=== PATIENT | male | born 1995 | race Caucasian/White ===

== ENCOUNTER 2022-08-05 06:51 | Emergency (ER) | payer SELFPAY ==
[2022-08-05 07:20] LABS: Bilirubin Small (Negative); Blood, Urine Negative (Negative); Clarity Clear (Clear); Glucose, Urine (Dipstick) Negative (Negative); Ketone, Urine 80 mg/dL (Negative); Leukocyte Negative (Negative); Nitrite Negative (Negative); Protein, Urine (Dipstick) 100 mg/dL (Neg-Trace); Urobilinogen 0.2 mg/dL (Less than 2)
[2022-08-05 07:27] LABS: Specific Gravity, Urine 1.032 (1.002-1.036)
[2022-08-05 07:29] LABS: Bacteria/HPF Rare-Few HPF (None Seen); Mucous/LPF 2+ LPF (<2+); RBC/HPF None Seen HPF (0-3); Squamous Epithelial 0-3 HPF (0-3); WBC/HPF None Seen HPF (0-3)
[2022-08-05 07:30] LABS: ALT (SGPT) 18 U/L (8-55); AST (SGOT) 14 U/L (5-34); Albumin 4.8 g/dL (3.5-5.0); Alkaline Phosphatase 80 U/L (40-110); Anion Gap 24 mmol/L (10-20); BUN (Urea Nitrogen) 15 mg/dL (8.9-20.6); Bilirubin, Total 0.6 mg/dL (0.2-1.2); Calc. Creatinine Clearance 0 mL/min (70-130); Calcium 10.1 mg/dL (7.8-10.44); Carbon Dioxide 14 mmol/L (22-29); Chloride 109 mmol/L (98-107); Estimated GFR 100; Glucose 120 mg/dL (70-105); Lipase 14 U/L (8-78); Magnesium 1.7 mg/dL (1.6-2.6); Potassium 3.4 mmol/L (3.5-5.1); Protein, Total 7.8 g/dL (6.0-8.3); Sodium 144 mmol/L (136-145)
[2022-08-05] MEDS ORDERED: Sodium Chloride 0.9% 1,000 ML ONE (07:30)
[2022-08-05 07:31] LABS: Amphetamine Not Detected (NotDetected); Barbiturates Screen Not Detected (NotDetected); Benzodiazepine Screen Detected (NotDetected); Cocaine Metabolite Screen Not Detected (NotDetected); Methadone Not Detected (NotDetected); Methamphetamine Not Detected (NotDetected); Opiate Screen Not Detected (NotDetected); Oxycodone Screen Not Detected (NotDetected); Phencyclidine (PCP) Not Detected (NotDetected); THC/Cannabinoid Screen Detected (NotDetected); Tricyclic Screen Not Detected (NotDetected)
[2022-08-05 07:39] LABS: Hemoglobin 15.2 g/dL (14.0-18.0); MDiff Complete? YES; Mean Corpuscular Hemoglobin 27.9 pg (27.0-31.0); Mean Corpuscular Volume 84.7 fl (78.0-98.0); Mean Platelet Volume 7.6 fL (7.4-10.4); Platelet Count 211 10x3/uL (130-400); RBC Distribution Width 11.3 % (11.5-14.5); Red Blood Cell (RBC) Count 5.44 mill/uL (4.70-6.10); White Blood Cell (WBC) Count 15.2 10x3/uL (4.8-10.8)
[2022-08-05 07:40] LABS: Band 3 % (5-11); Eosinophils 1 % (0-10); Lymphocytes 4 % (21-51); Monocytes 5 % (0-10); Neutrophil 87 % (42-75); Platelet Morphology Comment Appears Adequate
[2022-08-05] MEDS ORDERED: Potassium Chloride 20 MEQ TAB ONE (07:55)
[2022-08-05] MEDS ORDERED: Lorazepam 2 MG/ML VIAL ONE (07:55)
== END 2022-08-05 09:15 | disposition home or self-care (01) ==
LOC: NAV ERS 06:51
DX: F12.90 Cannabis use, unspecified, uncomplicated (principal); F41.9 Anxiety disorder, unspecified; R11.2 Nausea with vomiting, unspecified; Z79.899 Other long term (current) drug therapy
CPT/HCPCS: 74022; 80053; 80306; 81003; 81015; 83605; 83690; 83735; 83880; 84484; 85025; 96361; 96374; J2060; J7050

== ENCOUNTER 2023-04-02 04:59 | Emergency (ER) | payer SELFPAY ==
[2023-04-02] MEDS ORDERED: hydrOXYzine Pamoate 25 mg Capsule PO SCH (06:00)
== END 2023-04-02 06:20 | disposition home or self-care (01) ==
LOC: NAV ERS 04:59
DX: F41.9 Anxiety disorder, unspecified (principal); K21.9 Gastro-esophageal reflux disease without esophagitis
CPT/HCPCS: 99283; Q0177